=== PATIENT | female | born 1975 | race Caucasian/White ===

== ENCOUNTER → 2016-11-02 | Day surgery (SDC) | payer MEDICARE ==
[~2016-11-02] MED LIST: CALC200T3 PO; DIAZEPAM10 MG PO; FOLI1TAB16 PO; HYDR-2666 PO; HYDROmorphone 2 MG/ML VIAL IV PRN; IV RINGERS,LACTATED 1000ML 1,000 ML IV SCH; LEVO750T31 PO; LIDOCAINE 1% 1 ML SYRINGE. ID PRN; METH2.5T PO; METO10TA81 PO; MORPHINE SULFATE 2 MG/ML DISP.SYRIN. IV PRN; MULT-208 PO; OMEP20TA63 PO; ONDANSETRON PF 4 MG/2 ML VIAL. IV PRN; PROAIR HFA8.5 GM INH; PROCHLORPERAZINE 10 MG/2 ML VIAL. IV PRN; PROPOFOL 40 ML IV ONE; RABE20TA5 PO; USTE90DI SQ; fentaNYL PF VIAL 100 MCG/2 ML VIAL IV PRN; fentaNYL PF VIAL 100 MCG/2 ML VIAL ONE
[2016-11-02 10:20] VITALS: BP 119/73
--- NOTE | 2016-11-06 15:22 | PATHOLOGY ---
PATHOLOGY REPORT * * * * * * * * FINAL DIAGNOSIS: A. Small bowel biopsy: - Mild nonspecific duodenitis. B. Gastric biopsy, antral polyp: - Fundic gland polyp. C. Esophageal biopsy, distal esophagus: - Segment of esophagogastric mucosa showing chronic inflammation. D. Esophageal biopsy, middle esophagus: - Segments of squamous esophageal mucosa identified. COMMENT: A. Sections of the small bowel biopsy reveal segments of duodenal and small intestine mucosa showing mild chronic inflammation with a few admixed neutrophils. There are no sprue-like changes. B. Sections of the gastric polyp biopsy reveal a polypoid segment of gastric body mucosa showing focal cystic dilatation of fundic glands consistent with fundic gland polyp. There are no adenomatous changes or evidence of malignancy. C. Sections of the distal esophageal biopsy reveal a segment of esophagogastric mucosa showing moderate chronic inflammation. There is no evidence of Siddiqi's change, dysplasia, or malignancy. D. Sections of the middle esophageal biopsy reveal segments of squamous esophageal mucosa showing fairly normal production support analyst maturation. There is no evidence of Siddiqi's change, dysplasia, or malignancy. REPORT ELECTRONICALLY SIGNED BY: Aldo Posadas M.D. DATE/TIME: 11/06/2016 15:21 * * * * * * * * GROSS PATHOLOGY: A. Received in formalin labeled "Denise Gusman, small bowel biopsy," are four segments of rain soft tissue measuring 0.8 x 0.8 x 0.1 cm in aggregate dimensions and ranging from 0.2 to 0.4 cm in maximum dimension. The specimen is submitted entirely in cassette A1. B. Received in formalin labeled "Denise Gusman, antral polyp," is a segment of rain soft tissue measuring 0.5 cm in maximum dimension. The specimen is submitted entirely in cassette B1. C. Received in formalin labeled "Denise Gusman, distal esophagus biopsy," is a segment of rain soft tissue measuring 0.5 cm in maximum dimension. The specimen is submitted entirely in cassette C1. D. Received in formalin labeled "Denise Gusman, mid esophagus biopsy," are two segments of rain soft tissue measuring 0.5 x 0.3 x 0.1 cm in aggregate dimensions and ranging from 0.2 to 0.5 cm in maximum dimension. The specimen is submitted entirely in cassette D1. ([facility]; 11/03/2016) INITIAL CPT CODE(S): A; 60386 B; 35329 C; 34668 D; 93357 Professional services performed by [facility] at [facility] [address] [place] [address] Technical services performed by [facility] at [address] [place] [address], [facility] [address] [place] [address]. SPECIMEN(S) RECEIVED: A.Small bowel biopsy B.Antral polyp C.Distal esophagus biopsy D.Mid esophagus biopsy CLINICAL HISTORY: Abdominal pain PATIENT: DENISE GUSMAN /AGE: 612/03/1975 (Age: 40) PATIENT #: [id number] ALT CASE #: SPECIMEN COLLECTION DATE: 11/02/2016 SPECIMEN RECEIVED DATE: 11/02/2016 [facility] - [address] [place] [address] - PHONE: [phone] * * * END OF REPORT * * *
== END | disposition home or self-care (01) ==
LOC: ENDOS 07:35 → MERGE 09:00
PROVIDERS: ATTEND Internal Medicine Gastroenterology
DX: K21.0 Gastro-esophageal reflux disease with esophagitis (principal); K31.7 Polyp of stomach and duodenum; K44.9 Diaphragmatic hernia without obstruction or gangrene; J45.909 Unspecified asthma, uncomplicated; F41.9 Anxiety disorder, unspecified; Z86.69 Personal history of other diseases of the nervous system and sense organs; Z90.49 Acquired absence of other specified parts of digestive tract; E66.9 Obesity, unspecified; Z98.51 Tubal ligation status; Z90.710 Acquired absence of both cervix and uterus; Z87.442 Personal history of urinary calculi; Z72.89 Other problems related to lifestyle
CPT/HCPCS: 43239; 43450; J2704; J3010; 88305